=== PATIENT | female | born 1960 | race Asian ===

== ENCOUNTER 2020-10-19 06:27 | Inpatient (IN) ==
--- NOTE | 2020-10-14 07:34 | ANES ---
Anesthesia Pre Procedure Eval HOME MEDICATIONS L.acidoph,Paracasei, B.lactis [Probiotic] 1 ea PO DAILY PRN 01/18/18 [Last Taken Unknown] Multivitamin [Multivitamins] 1 ea PO DAILY 01/18/18 [Last Taken 01/17/18] aspirin 81 mg tablet,delayed release 81 mg PO DAILY 03/24/20 [Last Taken Unknown] omeprazole 20 mg tablet,delayed release 20 mg PO DAILY #90 tab 04/22/20 [Last Taken Unknown] trazodone 50 mg tablet 50 mg PO HS PRN #90 tab 04/22/20 [Last Taken Unknown] ascorbate calcium (vitamin C) 500 mg tablet 500 mg PO DAILY 09/30/20 [Last Taken Unknown] atorvastatin 10 mg tablet 5 mg PO DAILY tab 09/30/20 [Last Taken Unknown] omega-3 fatty acids 1,000 mg capsule 1,000 mg PO DAILY 09/30/20 [Last Taken Unknown] Allergies/Adverse Reactions: Allergies Allergy/AdvReac Type Severity Reaction Status Date / Time No Known Allergies Allergy Verified 08/13/20 15:05 - Planned Procedure Planned Procedure: Left Arthroplasty Total Knee Medication List Reviewed:: Yes Allergies Verified: Yes Medical History (Last Reviewed 10/14/20 @ 07:30 by Constantine Ngo CRNA) COVID-19 Environmental allergies GERD (gastroesophageal reflux disease) Lives with spouse Occasional alcohol consumption Tonsillitis cyst removed from finger Surgical History (Last Reviewed 10/14/20 @ 07:30 by Constantine Ngo CRNA) History of toe surgery bilateral great toenails removed permanently 07/30/20 History of arthroscopic knee surgery Family History (Last Reviewed 10/14/20 @ 07:30 by Constantine Ngo CRNA) Father Myocardial infarction CVA (cerebral vascular accident) Mother - Family Anesthesia History Family History:: no untoward family reactions to anesthesia, no familial bleeding tendencies, no family history of clotting disorders, no family history of premature - Airway/Neck/Teeth Within Normal Limits:: Yes Teeth Condition: intact - one lower left molar slightly loose Neck Exam: full range of motion Mallampatti Score: 3 Thyromental (T-M) distance: > 6 cm Mandibulo Hyoid distance: > 3 cm - Respiratory Respiratory Physical: lungs clear Smoking Status: Never smoker Sleep Apnea currently treated: No Sleep Apnea by current assessment: No - Cardiovascular Cardiac History: hypertension - not treated but borderline, hyperlipidemia Tolerate Activity: Fair Heart Sounds: S1 & S2, Regular - Gastrointestinal NPO since: instructed 2400 - Anesthesia Assessment and Plan ASA Class: PS, II Anesthesia Type Plan: Block - adductor canal block for post op pain relief, Spinal
[~2020-10-19 06:27] MED LIST: ISOPROPYL ALCOHOL 480 APPL BTL MC ONE; MORPHINE SULFATE 15 MG TABLET.SA PO PRN; ROPIVACAINE/CLONIDIN/KETOROLAC 50 ML SYRINGE IJ ONE; ROPIVACAINE/CLONIDIN/KETOROLAC 50 ML SYRINGE IJ PRN; TRANEXAMIC ACID 1,000 MG in NORMAL SALINE 100 ML IV PRN; ceFAZolin SODIUM 1 GM VIAL IV PRN; ceFAZolin SODIUM 1 GM VIAL ONE
[2020-10-19] MEDS: RINGER'S SOLUTION,LACTATED 1,000 ML IV PRN ×2 (06:52→09:25)
[2020-10-19] MEDS ORDERED: MIDAZOLAM HCL/PF 5 MG/ML VIAL ONE (07:14)
[2020-10-19] MEDS ORDERED: BUPIVACAINE HCL/EPINEPHRINE 50 ML VIAL IJ ONE (07:14)
[2020-10-19] MEDS ORDERED: NORMAL SALINE 20 ML VIAL ONE (07:14)
[2020-10-19] MEDS ORDERED: BUPIVACAINE HCL/PF 10 ML VIAL ONE (07:14)
[2020-10-19] MEDS ORDERED: LIDOCAINE HCL 20 ML VIAL ONE (07:26)
[2020-10-19] MEDS ORDERED: PROPOFOL VIAL IV ONE (07:26)
[2020-10-19] MEDS ORDERED: diphenhydrAMINE HCL 50 MG/ML VIAL IV PRN (10:22)
[2020-10-19] MEDS ORDERED: ZOLPIDEM TARTRATE 5 MG TABLET PO PRN (10:22)
[2020-10-19] MEDS ORDERED: MORPHINE SULFATE 2 MG/ML DISP.SYRIN IV PRN (10:22)
[2020-10-19] MEDS ORDERED: ACETAMINOPHEN 500 MG TABLET PO PRN (10:22)
[2020-10-19] MEDS ORDERED: MAG HYDROX/ALUMINUM HYD/SIMETH 30 ML UDC PO PRN (10:22)
[2020-10-19] MEDS ORDERED: MAGNESIUM HYDROXIDE 30 ML UDC PO PRN (10:22)
--- NOTE | 2020-10-19 10:26 | OR ---
Operative Report - Dictated Report Narrative: Date: 10/19/2020 Preoperative diagnosis: Left knee degenerative joint disease. Postoperative diagnosis: Left knee degenerative joint disease. Procedure: Left total knee arthroplasty. Surgeon: Delvis Archibald M.D. Chore Tender: Tj Rubi PA-C (provided and essential set of skilled, educated hands that assisted with transfer, positioning, prepping, draping, manipulation, retraction, placement of jigs, injection, insertion of implants, irrigation, closure wounds, and dressings all of which could not be performed by the available surgical crew) Anesthesia: Spinal with regional block and local periarticular joint injection. Complications: None Specimens: Bone. Estimated blood loss: Minimal. Tourniquet time: 75 minutes at 300 millimeters of mercury. Retained implants: Depuy Attune size 5 narrow left lugged cemented posterior stabilized femoral component. Size 4 fixed-bearing cemented tibial platform. 5 by 5 millimeter posterior stabilized cross-linked tibial insert. 41 millimeter medialized patella button. Indications: Mrs. Rico is a 60-year-old female who has had longstanding left knee pain and arthrosis. This patient was followed in my clinic for period of time with significant complaints of left knee pain consistent with arthritic changes. She had failed conservative measures including, but not limited to, activity modification, passage of time, medications, and other conservative measures. Patient wished to proceed with surgical treatment. The risks, benefits, and alternatives were discussed in clinic. The risks of , blood clots, bleeding, infection, nerve/tendon blood vessel/ injury, malposition of components, intraoperative fracture, postoperative limited range of motion, persistent pain, failure of components, and need for additional procedures. Patient wished to proceed consent was obtained after answering all questions. Procedure: After marking the correct extremity on the floor, the patient was taken to the operating room. A timeout was performed. IV antibiotics consisting of Ancef were administered prior to the procedure. A regional followed by spinal anesthetic was induced by anesthesia, per my request, on the operative table with all bony prominences well-padded. Hdez catheter was placed, and a bump was placed under the operative side buttock. SCDs and CARYN hose were utilized on the nonoperative leg. A well-padded tourniquet was applied to the operative thigh. The operative leg was then pre-scrubbed with alcohol, prepped, and draped in a standard sterile fashion. After exsanguinating the extremity with an Esmarch bandage, the tourniquet was inflated. After marking out the anterior knee for standard incision centered over the patella, the skin was incised and dissected down to the joint retinaculum. The joint retinaculum was marked out as well as the horizontal axis of the patella, and a standard medial parapatellar arthrotomy was then made. The most proximal aspect of the quadriceps tendon and the patella tendon insertion were protected from release. A partial synovectomy was performed as well as a resection of the infrapatellar fat pad. The distal femoral fat pad proximal to the trochlea was also resected using cautery. The soft tissues were elevated off the medial a spect of the proximal tibia using a Goldberg elevator ensuring that we did not transect the medial collateral ligament. Upon initial evaluation range of motion was approximately 5 degrees to 130 degrees of flexion. There were signs of advanced arthrosis in the medial, patellofemoral greater than lateral joint spaces. There were large marginal osteophytes which were removed with a rongeur. The knee was hyperflexed and the patella was tucked laterally. Protecting the surrounding soft tissues with Homans, an entry drill was placed down the femoral canal using Whitesides line for guidance into the entry point. The intramedullary femoral alignment jakob was utilized in order to cut the distal femur in 5 degrees of valgus resecting 10 millimeters of bone. Next the distal femur was sized to a size 5. A posterior referencing guide was utilized to place the distal femoral cutting block in 3 degrees of external rotation. This was pinned into place. The rotation was confirmed both visually and based on anatomic landmarks. The 4 in 1 cutting jig of the appropriate size was utilized in order to make all bony cuts. The stone wing was used to ensure no notching. Retractors were utilized in order to protect surrounding soft tissues. This cut did not result in any excessive notching. We then cut the box centered over the distal femur. This allowed for resection of the anterior and posterior cruciate ligaments. I then turned my attention to the preparation of the tibia. Using an extra medullary tibial alignment jakob, 2 millimeters of bone was resected off the medial articular surface. This was made perpendicular to the mechanical axis of the joint with the alignment jakob centered over the ankle mortise. The alignment jakob was checked and was noted to be parallel to the mechanical axis, centered over the medial one third of the tibial tubercle, paralleling the anterior surface of the tibia. We then turned our attention to the remaining meniscus and soft tissues. These were removed while protecting the surrounding ligaments and soft tissues. The marginal osteophytes off the anterior, posterior, medial, lateral aspects of the femur and tibia were removed. The tibia was sized out to a size 4. Next the tibia was drilled and punched in an externally rotated position. Next the trial femur and a series of tibial inserts were utilized in order to allow for full extension and maximal flexion. It was found that a 5 millimeter insert gave the best range of motion and stability at multiple flexion points as well as at full extension there was less than 2 mm of gapping both medially and laterally. There is minimal anterior translation with the knee at 90 degrees of flexion and no signs of being able to dislocate the knee. The patella was then prepared. The initial thickness was 25 millimeters. This was reamed down to 15 millimeters parallel to the anterior surface of the patella. It was sized out to a size 41 medialized patella button. This was then drilled and trialed. Without any medial restraint the patella tracked appropriately and did not sublux or dislocate. At this point, it was felt these were the appropriate sized implants, and all trials were removed. The standard periarticular joint injection consisting of ropivacaine, Toradol, and epinephrine were injected into the periarticular joint tissues. The bony surfaces were thoroughly irrigated with a pulsatile-suction saline irrigation device. A bone plug from the prior resected anterior chamfer cut was placed into the drill hole at the distal femur. The bony surfaces were then dried in preparation for placement of the implants. The cement was vacuum mixed per the side hemmer's instructions. The cement was placed on the dry bony surfaces and posterior aspect of the implants. The implants were impacted into place, removing all extruded cement. At this point anesthesia administered tranexamic acid per protocol intravenously. The knee was placed in extension with axial loading with the trial insert while the cement cured. Once the cement cured, all remaining extruded cement was removed. The knee was placed through a range of motion with the trial insert to ensure appropriate range of motion and stability. Final range of motion was approximately 0 to 130 degrees. The knee was again thoroughly irrigated with pulsatile saline lavage. The final polyethylene insert was then impacted into place ensuring no retained soft tissues. The remaining periarticular joint injection was injected. A medium Hemovac drain was placed exiting superior laterally. The knee was then placed over a triangle and the arthrotomy was closed with interrupted #1 Vicryl after thoroughly irrigating the joint. The deep and subcutaneous tissues were closed with interrupted 0 and 3-0 Vicryl respectively. Skin was closed with a running subcutaneous 3-0 Monocryl and Prineo Dermabond dressing. 4 x 4's, Sof-Rol, and a full leg Vince wrap were applied. All sponge, needle, blade, and instrument counts were correct prior to closing the wounds. Postoperative condition: The patient was awoken and transferred to the postanesthesia care unit in stable condition. Plan is to be admitted to the inpatient medical/surgical floor postoperatively for 24 hours of IV antibiotics, physical therapy, occupational therapy, and medical comanagement. Patient will be weightbearing as tolerated with range of motion as tolerated. DVT prophylaxis will be with SCDs, CARYN hose, and pharmacological anticoagulation. Anticipated hospital stay is approximately 1-3 days.
--- NOTE | 2020-10-19 10:53 | ANES ---
Post Anesthesia Discharge - Transfer of Care Transfer of Care handoff given to nurse: Yes - Discharge from PACU Discharge from PACU when meets criteria: Yes
--- NOTE | 2020-10-19 10:55 | ANES ---
Anesthesia Procedure Note Procedure Note: ANESTHESIA PROCEDURE NOTE Date of procedure: 10/19/2020. Time of procedure: 904. Performed by: Bk Blankenship CRNA Hollow Handle Bench Worker: Isabel Salazar RN . Preprocedure diagnosis: Left knee DJD. Post procedure diagnosis: Same. Procedure: Ultrasound-guided left adductor canal block Indications: Postoperative analgesia. Findings: Patient was brought to operating room #4, sedated, and given a spinal anesthetic. Patient was then placed in a supine position. The patient's left inner thigh was prepped with ChloraPrep. Ultrasound utilized to identify the saphenous nerve in the left adductor canal. A 20-gauge 4 inch regional block needle was advanced under ultrasound guidance until tip of needle was placed just proximally to saphenous nerve. A total of 30 mL of 0.25% Marcaine with epinephrine 1-200,000 was injected with adequate spread of local anesthesia noted around the nerve. Regional block needle was removed intact. EBL: Minimal. Fluids: N/A. Specimen: N/A. Post procedure condition: The patient tolerated the procedure well. No complications were noted. Thank you for this consultation Bk Blankenship CRNA
[2020-10-19] MEDS: DEXTROSE 5%-LACTATED RINGERS 1,000 ML IV PRN ×2 (11:41→20:01)
[2020-10-19] MEDS: KETOROLAC TROMETHAMINE 15 MG/ML VIAL IV SCH ×3 (11:42→23:23)
[2020-10-19] MEDS: ceFAZolin SODIUM 1 GM in DEXTROSE 5 % IN WATER 100 ML IV SCH ×6 (11:42→23:23)
--- NOTE | 2020-10-19 11:57 | ANES ---
Post Anesthesia Assessment - Vital Signs Vitals: Last Vital Signs Temp 36.5 C 10/19/20 11:10 Pulse 57 L 10/19/20 11:10 Resp 16 10/19/20 11:10 BP 104/54 10/19/20 11:10 Pulse Ox 97 10/19/20 11:10 Airway Patency: Normal - Mental Status Level Of Consciousness: Awake - Pain Level Pain Score: 0 - N/V Assessment Nausea/Vomiting Presence: None Dehydration:: No
[2020-10-19] MEDS: ONDANSETRON HCL/PF 2 MG/ML VIAL IV PRN ×2 (15:26→20:00)
[2020-10-19] MEDS: oxyCODONE HCL/ACETAMINOPHEN 1 TAB TABLET PO PRN (17:27)
[2020-10-19] MEDS ORDERED: SENNOSIDES/DOCUSATE SODIUM 1 TAB TABLET PO SCH (21:00)
[2020-10-19] MEDS ORDERED: ROSUVASTATIN CALCIUM 5 MG TABLET PO SCH (21:00)
[2020-10-20] MEDS: oxyCODONE HCL/ACETAMINOPHEN 1 TAB TABLET PO PRN (02:58)
[2020-10-20] MEDS: KETOROLAC TROMETHAMINE 15 MG/ML VIAL IV SCH ×2 (04:04→10:13)
[2020-10-20 06:31] LABS: Hematocrit 34.7 % (37.0-47.0); Hemoglobin 11.3 gm/dL (12.5-16.0); Mean Cell Volume 90.6 fl (78-100); Mean Corpuscular Hemoglobin 29.5 pg (27-31); Mean Corpuscular Hgb Conc 32.6 g/dl (32-36); Mean Platelet Volume 9.2 fl (8-12.5); Platelet Count 152 K/mm3 (150-450); Red Blood Count 3.83 M/mm3 (4.2-5.4); Red Cell Distribution Width 12.1 % (11.5-14.0); White Blood Count 6.2 K/mm3 (4.0-10.5)
[2020-10-20] MEDS: ONDANSETRON HCL/PF 2 MG/ML VIAL IV PRN (06:35)
[2020-10-20 06:42] LABS: Anion Gap 12.6 mmol/L (6.8-13.8); Calcium * 8.8 mg/dL (7.9-10.9); Carbon Dioxide 27.9 mmol/L (24-32.6); Estimated Creat Clear 77.2; Potassium 3.5 mmol/L (3.4-4.6)
[2020-10-20] MEDS ORDERED: PANTOPRAZOLE SODIUM 20 MG TABLET.DR PO SCH (07:00)
[2020-10-20] MEDS ORDERED: SCOPOLAMINE HYDROBROMIDE 1.5 MG PATC TD SCH (08:30)
[2020-10-20] MEDS ORDERED: CHOLECALCIFEROL 1,000 UNIT CAPSULE PO SCH (09:00)
[2020-10-20] MEDS ORDERED: MULTIVITAMINS 1 CAP CAPSULE PO SCH (09:00)
[2020-10-20] MEDS ORDERED: ASCORBIC ACID 500 MG TABLET PO SCH (09:00)
[2020-10-20] MEDS ORDERED: ENOXAPARIN SODIUM 40 MG/0.4 ML SYRG SC SCH (09:22)
[2020-10-20] MEDS ORDERED: HYDROcodone/ACETAMINOPHEN 1 EACH TABLET PO PRN (09:50)
[2020-10-20] MEDS ORDERED: HYDROcodone/ACETAMINOPHEN 1 EACH TABLET ONE (10:11)
--- NOTE | 2020-10-20 12:22 | DS ---
(1) Status post left knee replacement Problem: Acute Date of Discharge:: 10/20/20 Hospital Course: Mrs. Rico was admitted to the floor after undergoing left total knee arthroplasty. Tolerated this well. Was admitted to the floor postoperatively for 24 hours of IV antibiotics, pain control, medical comanagement, and occupational and physical therapy. OT and PT were consulted to assist with activities of daily living and ambulation. Was made weightbearing as tolerated with range of motion as tolerated. Pain was initially controlled with IV regimen. This was transitioned to oral once tolerating a by mouth intake. Was resumed on home diet and medications. Had a Hdez catheter inserted and the operating room which was discontinued on postoperative day 1. A drain was placed intraoperatively into the knee which was discontinued on postoperative day 1. Lovenox SCD and CARYN hose were utilized for DVT prophylaxis. Vital signs remained stable to the hospital course. Serial labs were obtained which showed a final hemoglobin of 11.3 grams. BMP was reviewed and was stable. Physical examination throughout the hospital course showed an extremity that had sensation that was intact to light touch, palpable pulses, a benign wound, motor intact to the toes, ankle, and knee. Knee range of motion was approximately 5 degrees to 70 degrees. Once an oral pain regimen was tolerated and physical therapy goals were met, it was felt that they were stable for discharge to home. Instructions: Continue with weightbearing as tolerated and range of motion as tolerated. It is OK to shower on the wound if it is not draining. If you note any drainage or for comfort you can cover with dry gauze and tape. Change every 2-3 days as needed. Continue with physical therapy. Resume home diet. Report any fever over 101.5 Fahrenheit, uncontrolled pain, increased drainage, foul odor of drainage, new or increased calf pain or shortness of breath, or any other significant complaints. A 325mg dialy aspirin will be started after finishing anticoagulation if not allergic. Continue with CARYN hose on the operative extremity until instructed otherwise. No driving until instructed otherwise. Follow up in approximately 10-14 days. Procedures Performed: see notes below List Procedures: Left total knee arthroplasty Results and Findings: Lab Pending Results 10/20/20 06:26: WBC 6.2, RBC 3.83 L, Hgb 11.3 L, Hct 34.7 L, MCV 90.6, MCH 29.5, MCHC 32.6, RDW 12.1, Plt Count 152, MPV 9.2 10/20/20 06:26: Sodium 144 H, Plasma Sodium 144 H, Potassium 3.5, Chloride 107 H, Carbon Dioxide 27.9, Anion Gap 12.6, BUN 6, Creatinine 0.60, Est GFR (Non-Af Amer) 109, BUN/Creatinine Ratio 10.0, Random Glucose 97, Calcium 8.8 Discharge Location: Home Disposition: Home self-care Condition: Good Discharge Activity: Weight bearing, Other - With wheeled walker Discharge Diet: General/regular food, Low salt Referrals: Moy Swenson DO [Primary Care Provider] - Additional Patient Instructions (free text): [facility] appointment MondayOctober 21 at 8:00 a.m. [facility] follow up Orthopedic with Tj Rubi MondayNovember 10 at 9:15 a.m.. Prescriptions (Any new or edited meds): Enoxaparin Sodium [Lovenox] 40 mg SC Q24H #7 disp.syrin Transmission Status: Pending to [facility] HYDROcodone/ACETAMINOPHEN [Robards 5-325] 2 ea PO Q4H PRN #42 tab PRN Reason: Pain Transmission Status: Sent to [facility] Sennosides/Docusate Sodium [Senokot-S] 2 tab PO HS #30 tab Transmission Status: Pending to [facility] Ondansetron HCl [Zofran] 4 mg PO QID PRN #30 tab PRN Reason: Nausea Transmission Status: Pending to [facility] Complete Home Medications List: Complete Home Medication List: Multivitamin [Multivitamins] 1 ea PO DAILY 01/18/18 aspirin 81 mg tablet,delayed release 81 mg PO DAILY 03/24/20 omeprazole 20 mg tablet,delayed release 20 mg PO DAILY #90 tab 04/22/20 trazodone 50 mg tablet 50 mg PO HS PRN #90 tab 04/22/20 atorvastatin 10 mg tablet 5 mg PO DAILY tab 09/30/20 Ascorbic Acid [Vitamin C] 1,000 mg PO DAILY 10/14/20 cholecalciferol (vitamin D3) 25 mcg (1,000 unit) capsule 25 mcg PO DAILY 10/15/20 Enoxaparin Sodium [Lovenox] 40 mg SC Q24H #7 disp.syrin 10/20/20 HYDROcodone/ACETAMINOPHEN [Robards 5-325] 2 ea PO Q4H PRN #42 tab 10/20/20 Ondansetron HCl [Zofran] 4 mg PO QID PRN #30 tab 10/20/20 Sennosides/Docusate Sodium [Senokot-S] 2 tab PO HS #30 tab 10/20/20 Amb Orders for Discharge: PT Evaluation and Treatment* Facility: [facility], Location: Rehabilitation Services Forms: Patient Portal Registration
[2020-10-20 15:45] VITALS: BP 125/71
== END 2020-10-20 16:15 | disposition home or self-care (01) | DRG 470 ==
LOC: MS 06:27 → EDSTATUS 08:00
PROVIDERS: ADMIT Orthopaedic Surgery; ATTEND Orthopaedic Surgery